=== PATIENT | male | born 1960 | race Caucasian/White ===

== ENCOUNTER 2018-03-03 17:28 | Emergency (ER) | payer OTHER ==
--- NOTE | 2018-03-03 17:32 | PDOC ---
Rapid Medical Evaluation Time Seen by Provider: 03/03/18 17:30 Medical Evaluation: 03/03/18 17:30 I have performed a brief in-person evaluation of this patient. The patient presents with a chief complaint of: right low back pain to R leg x 6 days, taking motrin w/o relief, pain is worse with movement/standing Pertinent physical exam findings: ambulatory, no loss of sensation I have ordered the following: nothing The patient will proceed to the ED for further evaluation. Discharge Disposition - Diagnosis Low back pain - Referrals - Patient Instructions - Post Discharge Activity
[2018-03-03 17:36] VITALS: BP 145/94; PULSE 76; TEMP 98; BMI 26.6
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
[2018-03-03] MEDS ORDERED: KETOROLAC TROMETHAMINE 60 MG/2 ML VIAL IM ONE (18:27)
[2018-03-03] MEDS ORDERED: KETOROLAC TROMETHAMINE 60 MG/2 ML VIAL ONE (18:31)
== END 2018-03-03 19:05 | disposition home or self-care (01) ==
LOC: JERFT 17:28
PROC: 3E0233Z Introduction of Anti-inflammatory into Muscle, Percutaneous Approach (ICD-10-PCS; principal; 2018-03-03)
DX: M54.5 Low back pain (principal)
CPT/HCPCS: 96372; 99281-25

== ENCOUNTER 2019-05-30 01:03 | Emergency (ER) | payer OTHER ==
[2019-05-30 02:23] VITALS: BP 128/83; PULSE 75; TEMP 98.2; BMI 26.3
--- NOTE | 2019-05-30 02:32 | PDOC ---
*Physical Exam - Vital Signs Last Vital Signs Temp Pulse Resp BP Pulse Ox 98.2 F 75 18 128/83 98 05/30/19 01:03 05/30/19 01:03 05/30/19 01:03 05/30/19 01:03 05/30/19 01:03 Medical Decision Making - Medical Decision Making 05/30/19 02:31 Patient seen by the advanced practice provider under my direct supervision. Ancillary testing reviewed as necessary. I agree with plan as outlined by the advanced practice provider. *DC/Admit/Observation/Transfer Diagnosis at time of Disposition: Inguinal hernia, right, Upper back pain on right side - Discharge Dispostion Condition at time of disposition: Good - Referrals Referrals: Chico Byrd MD [Staff Physician] - Call tomorrow Gayatri Abebe MD [Primary Care Provider] - - Patient Instructions Printed Discharge Instructions: Groin Hernia -- Adult Additional Instructions: no heavy lifting. follow up with a surgeon as soon as possible. follow up with Dr. Byrd as soon as possible. - Post Discharge Activity Forms/Work/School Notes: Back to Work
--- NOTE | 2019-05-30 02:50 | PDOC ---
History of Present Illness - General Chief Complaint: Pain Stated Complaint: ABD PAIN Time Seen by Provider: 05/30/19 02:10 History Source: Patient - History of Present Illness Initial Comments: 05/30/19 03:28 59 year old male reports that he was gagging while brushing his teeth and started coughing noted pain to the right inguinal area patient reports that his this is been going on and off for the last 1 week. Patient has an appointment with his PCP in the morning however decided to come to the emergency room for evaluation. Patient reports that the pain is worse with coughing and straining. Patient also reports some pain to the right upper back after the coughing episode at home. enies chest pain,pleuritic pain shortness of breath, nausea, vomiting, abdominal pain, urinary symptoms, testicular pain. Past History - Past Medical History Allergies/Adverse Reactions: Allergies Allergy/AdvReac Type Severity Reaction Status Date / Time Penicillins Allergy Unknown Verified 05/30/19 02:30 Home Medications: Ambulatory Orders Lisinopril 20 mg PO DAILY 05/30/19 Multivitamins [Tab-A-Vit -] 1 tab PO DAILY 05/30/19 COPD: No HTN: Yes - Suicide/Smoking/Psychosocial Hx Smoking History: Current some day smoker Have you smoked in the past 12 months: Yes Number of Cigarettes Smoked Daily: 5 Information on smoking cessation initiated: No Hx Alcohol Use: Yes Drug/Substance Use Hx: No Substance Use Type: None Review of Systems - Review of Systems Able to Perform ROS?: Yes Is the patient limited Solomon Islander proficient: No : Yes: Other (right groin pain) Musculoskeletal: Yes: Back Pain *Physical Exam - Vital Signs Last Vital Signs Temp Pulse Resp BP Pulse Ox 98.2 F 75 18 128/83 98 05/30/19 01:03 05/30/19 01:03 05/30/19 01:03 05/30/19 01:03 05/30/19 01:03 - Physical Exam General Appearance: Yes: Appropriately Dressed Respiratory/Chest: positive: Lungs Clear, Normal Breath Sounds Cardiovascular: positive: Regular Rhythm, Regular Rate Gastrointestinal/Abdominal: positive: Normal Bowel Sounds, Soft. negative: Tender Male Genitalia: positive: normal genitalia, inguinal hernia (right inguinal hernia reducible. ). 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, Alert, Normal Mood/ Affect, Normal Response, Motor Strength /5 Progress Note - Progress Note Progress Note: A: inguinal hernia; back pain P: xray pain outpatient surgery follow up *DC/Admit/Observation/Transfer Diagnosis at time of Disposition: Inguinal hernia, right, Upper back pain on right side - Discharge Dispostion Disposition: HOME Condition at time of disposition: Good - Referrals Referrals: Gayatri Abebe MD [Primary Care Provider] - Chico Byrd MD [Staff Physician] - Call tomorrow - Patient Instructions Printed Discharge Instructions: Groin Hernia -- Adult Additional Instructions: no heavy lifting. follow up with a surgeon as soon as possible. follow up with Dr. Byrd as soon as possible. - Post Discharge Activity Forms/Work/School Notes: Back to Work
[2019-05-30] MEDS ORDERED: ACETAMINOPHEN 325 MG TABLET (FP) PO ONE (02:52)
[2019-05-30] MEDS ORDERED: ACETAMINOPHEN 325 MG TABLET (FP) ONE (02:56)
== END 2019-05-30 04:55 | disposition home or self-care (01) ==
LOC: JER 01:03
DX: K40.90 Unilateral inguinal hernia, without obstruction or gangrene, not specified as recurrent (principal); M54.9 Dorsalgia, unspecified; I10 Essential (primary) hypertension; F17.210 Nicotine dependence, cigarettes, uncomplicated; Z88.0 Allergy status to penicillin
CPT/HCPCS: 71046-TC-FY; 99281-25

== ENCOUNTER → 2019-09-14 | Day surgery (SDC) | payer OTHER ==
[2019-09-13 12:09] VITALS: BMI 31.2
[~2019-09-14] MED LIST: BUPIVACAINE HCL/PF 0.5% (5 MG/ML) 30 ML VIAL IJ ONE; DEXAMETHASONE SOD PHOSPHATE 4 MG/1 ML VIAL ONE; GLYCOPYRROLATE 0.2 MG/1 ML VIAL ONE; IBUPROFEN 800 MG/8 ML IJ IVPB ONE; IBUPROFEN 800 MG/8 ML IJ IVPB PRN; LACTATED RINGERS SOLUTION 1,000 ML IV SCH; LIDOCAINE HCL/PF 2% SDV 5ML VIAL ONE; MIDAZOLAM HCL 2 MG/2 ML SINGLE DOSE VIAL ONE; NEOSTIGMINE METHYLSULFATE 0.5 MG/ML - 10 ML MDV ONE; ONDANSETRON 4 MG/2 ML VIAL IVPUSH PRN; PROPOFOL 20 ML ONE; ROCURONIUM BROMIDE 50 MG/5 ML SYRINGE ONE; ceFAZolin 2 GRAM PREMIX BAG IVPB ONE; ceFAZolin SODIUM 1 GM VIAL ONE; fentaNYL CITRATE 250 MCG/5 ML VIAL ONE; oxyCODONE HCL 5 MG TABLET ONE; oxyCODONE HCL 5 MG TABLET PO ONE; oxyCODONE HCL 5 MG TABLET PO PRN
--- NOTE | 2019-09-14 08:02 | HP ---
History & Physical Update - History History: No Change - Physical Physical: No Change - Assessment Assessment: No Change - Plan Plan: No Change (Full H&P in paper chart from 08/31/19)
--- NOTE | 2019-09-14 10:20 | OP ---
Operative Note - Note: Operative Date: 09/14/19 Pre-Operative Diagnosis: RIH with obstruction Operation: Robotic RIH repair with mesh Findings: RIH with incarcerated omentum Post-Operative Diagnosis: Same as Pre-op Surgeon: Chico Byrd Flexographic Printing Machinist: Calos Sheikh Anesthesiologist/DIRECTOR AUTOMOTIVE: Pita Wyatt Anesthesia: General Estimated Blood Loss (mls): 5 Operative Report Dictated: Yes
--- NOTE | 2019-09-14 12:20 | OP ---
DATE OF OPERATION: 09/14/2019 PROCEDURE: Robotic-assisted laparoscopic right inguinal hernia repair with mesh. PREOPERATIVE DIAGNOSIS: Right inguinal hernia with obstruction. POSTOPERATIVE DIAGNOSIS: Right inguinal hernia with obstruction. SURGEON: Chico Byrd MD BOILER PLANT WORKER: NAVARRO Weber ANESTHESIA: General endotracheal. FINDINGS AND PROCEDURE: This is a 59-year-old male who presents with a painful right inguinal bulge. This was reducible initially when resting. On examination, the patient has a 4-cm bulge in the right inguinal area with mild tenderness on attempted to reduce the hernia, so patient was advised elective hernia repair, and consent was obtained after discussing the risks, benefits, and alternatives of the procedure. PROCEDURE IN DETAIL: Patient was brought to the operating room and placed in supine position. General endotracheal anesthesia was administered. The abdomen was prepped and draped in the usual sterile fashion. Using 0.5% Marcaine, local anesthesia was administered to the proposed incision site. The peritoneal cavity was entered via an 8-mm supraumbilical incision slightly to the right of midline using Veress needle technique. Pneumoperitoneum was established. This was followed by insertion of 8-mm port. The 3D laparoscope was inserted, and the peritoneal cavity was carefully inspected and was noted to be free of any inadvertent injury. Patient was placed in Trendelenburg position, and incarcerated omentum was noted and spontaneously reduced. The left inguinal canal also was noted to contain a small indirect inguinal hernia. Two 8-mm ports were inserted 8 cm away from each side of the midline port under direct vision. After that, the robotic arms were docked, and the target organ was set. A fenestrated bipolar forceps was inserted at the left-sided port, and Endo Adriana were connected to monopolar cautery were inserted at the right-sided port. The undersigned then scrubbed out to commence the console part of the procedure. The peritoneal pocket was made by incising the parietal peritoneum at the level of the inferior superior iliac spine laterally and towards mid umbilical ligament medially. The pocket was created by combing sharp and blunt dissection with EndoWrist Adriana and fenestrated bipolar forceps. Dissection was carried medially toward the underside of the symphysis pubis and laterally towards the inferior superior iliac spine. Dissection was also carried down inferiorly until the psoas muscle and iliac vessels were visualized. Using the inferior epigastric vessels as a landmark, the hernia sac was carefully reduced from the internal ring with combined sharp dissection with the EndoWrist Adriana and blunt dissection with the fenestrated bipolar forceps. Sac was carefully dissected away from the spermatic cord vessels and the vas deferens. Due to its firm adherence to the spermatic cord structure distally, the sac was transected as far distal as possible taking care to avoid injury to the spermatic cord. Dissection was carried further superiorly to at least 7 cm away from the attenuated internal ring. After dissection was deemed satisfactory, a 15 x 10-cm right-sided ProGrip mesh was deployed to cover the indirect hernia defect laterally and the inguinal floor as well as the femoral canal medially medial to the inferior epigastric vessels. After deployment was deemed satisfactory, the parietal peritoneum was closed by applying a continuous V-Lock absorbable 2-0 sutures. This completed the console part of the procedure. The instruments were removed, and the robotic arms were undocked. The pneumoperitoneum was evacuated and the ports were removed. The wounds were closed with subcuticular Biosyn 4-0 sutures on the skin reinforced with Dermabond. Patient was successfully extubated and transferred to the post anesthesia care unit in satisfactory condition. Estimated blood loss was about 3 mL. Wound class clean. The patient received 2 g of Ancef prior to the start of the procedure. Jaxson [id number] MTDD
[2019-09-14 14:20] VITALS: BP 126/82; PULSE 68; TEMP 97.4
== END | disposition home or self-care (01) ==
LOC: JASU-SURG 06:08
PROVIDERS: ATTEND Surgery
PROC: 8E0W4CZ Robotic Assisted Procedure of Trunk Region, Percutaneous Endoscopic Approach (ICD-10-PCS; 2019-09-14)
PROC: 0YU54JZ Supplement Right Inguinal Region with Synthetic Substitute, Percutaneous Endoscopic Approach (ICD-10-PCS; principal; 2019-09-14 08:00)
DX: K40.30 Unilateral inguinal hernia, with obstruction, without gangrene, not specified as recurrent (principal)
CPT/HCPCS: 49650; S2900; 94760